=== PATIENT | male | born 1965 ===

== ENCOUNTER 2023-02-05 13:12 | Emergency (ER) | payer OTHER ==
[~2023-02-05] VITALS: Ht 175.3 cm; Wt 81.0 kg
[2023-02-05 13:18] VITALS: BP 144/75; PULSE 71; RESP 20; TEMP 98.5; O2SAT 100
== END 2023-02-05 14:45 | disposition left against medical advice (07) ==
LOC: ER 13:12
DX: Z53.21 Procedure and treatment not carried out due to patient leaving prior to being seen by health care provider (principal)
CPT/HCPCS: 99281